=== PATIENT | female | born 1990 | race Caucasian/White ===

== ENCOUNTER 2017-12-13 16:37 | Emergency (ER) | payer OTHER, SELFPAY ==
--- NOTE | 2017-12-13 16:49 | DI.RAD.S_ITS ---
PROCEDURE: XR HAND LT MIN 3V INDICATIONS: trauma to left fingers; TECHNIQUE: 3 views of the hand(s) acquired. COMPARISON: None. FINDINGS: Bones: No fractures or dislocations. Carpal bones are normally aligned. No suspicious bony lesions. Soft tissues: No suspicious soft tissue calcifications. IMPRESSION: No acute fracture. No osseous lesion. If symptoms and/or clinical suspicion for pathology persist, further assessment with repeat, or advanced imaging (e.g., CT, MRI, or bone scan) may be helpful for further assessment. Dictated by: Derek Cordero M.D. on 12/13/2017 at 16:57 Approved by: Derek Cordero M.D. on 12/13/2017 at 16:58
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
[2017-12-13 16:57] VITALS: BP 118/79; PULSE 75; RESP 16; TEMP 36.6; O2SAT 99; BMI 26.7
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
== END 2017-12-13 17:57 | disposition home or self-care (01) ==
PROVIDERS: Emergency Provider Nurse Practitioner Family
DX: S63.615A Unspecified sprain of left ring finger, initial encounter (principal); Y04.2XXA Assault by strike against or bumped into by another person, initial encounter
CPT/HCPCS: 73130; 99282; 99283

== ENCOUNTER 2018-02-19 14:35 | Emergency (ER) | payer OTHER, SELFPAY ==
[2018-02-19 14:39] VITALS: BP 113/63; PULSE 71; RESP 16; TEMP 36.7; O2SAT 97
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
[2018-02-19] MEDS: ONDANSETRON 4 MG ODT PO (17:43)
[2018-02-19] MEDS: ACETAMINOPHEN 325 MG TABLET 650 MG PO (17:43)
[2018-02-19] MEDS: IBUPROFEN 400 MG TABLET 800 MG PO (17:43)
== END 2018-02-19 18:04 | disposition home or self-care (01) ==
PROVIDERS: Emergency Provider Emergency Medicine
DX: S06.0X0A Concussion without loss of consciousness, initial encounter (principal); W22.8XXA Striking against or struck by other objects, initial encounter
CPT/HCPCS: 70450; 99283; 99284

== ENCOUNTER 2018-02-26 10:33 | Emergency (ER) | payer OTHER, SELFPAY ==
[2018-02-26 11:23] VITALS: BP 118/78; PULSE 79; RESP 16; O2SAT 100; BMI 26.1
[2018-02-26] MEDS: IBUPROFEN 400 MG TABLET PO (13:36)
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
== END 2018-02-26 16:05 | disposition home or self-care (01) ==
PROVIDERS: Emergency Provider Internal Medicine
DX: F07.81 Postconcussional syndrome (principal); W22.8XXA Striking against or struck by other objects, initial encounter; Y99.0 Civilian activity done for income or pay
CPT/HCPCS: 99282; 99283